=== PATIENT | female | born 1955 | race Caucasian/White ===

== ENCOUNTER 2017-02-10 06:27 | Inpatient (IN) | payer BC ==
--- NOTE | 2017-02-09 10:05 | HP ---
ADMISSION HISTORY AND PHYSICAL: DATE OF ADMISSION: 02/10/17. CHIEF COMPLAINT: Back pain. HISTORY OF PRESENT ILLNESS: This 62-year-old lady was seen in the office with signs and symptoms of chronic back pain. She had been evaluated and found to have significant lumbar degenerative disc disease at L4-5 and L5-S1 with disk space collapse and foraminal compromise. She had been treated extensively with conservative therapy and is being admitted at this time for elective surgical therapy. She has been treated with multiple rounds of physical therapy, epidural steroids injections and multiple medication and continues to have disabling pain. PAST MEDICAL HISTORY: Significant for primarily her back discomfort. PAST SURGICAL HISTORY: Previous surgeries include a hysterectomy. CURRENT MEDICATIONS: Include, 1. Paroxetine ER 20 mg daily. 2. Naproxen 375 mg p.o. daily. 3. Vivelle-Dot 0.05 mg per 24 hours twice weekly. ALLERGIES: She has no medication allergies. FAMILY HISTORY: Family history was taken and noncontributory to this illness. SOCIAL HISTORY: Reveals that the patient does not smoke and occasionally drinks alcohol. REVIEW OF SYSTEMS: A complete review of systems was taken and did not contribute to this illness. PHYSICAL EXAMINATION VITAL SIGNS: The patient was noted to have a blood pressure of 110/70 with a pulse of 64, respirations of 16. HEENT: Head was normocephalic with no scalp contusion or tenderness. Eyes revealed a full range of extraocular movements with pupils that were equal and reactive to light. NECK: Supple. LUNGS: Clear to auscultation. HEART: Revealed a regular rate and rhythm with no murmur. ABDOMEN: Soft with normal bowel sounds. No tenderness. EXTREMITIES: Revealed full range of active motion. NEUROLOGIC: Revealed her cranial nerves to be intact. Motor examination was 5/ 5 strength in all extremities. Sensory examination was intact to pinprick and light touch. Reflexes were 2+ with downgoing toes and no clonus. Straight leg raise test was positive on the right side at 45 degrees. IMPRESSION: Lumbar degenerative disk disease with chronic back pain. PLAN/RECOMMENDATIONS: She is admitted at this time for elective surgical therapy. I proposed a procedure of lumbar decompression with instrumentation at L4-5 and L5- S1 was explained in detail. The risks of surgery to include bleeding, infection, numbness, weakness, CSF leak and potential poor graft healing were all discussed. [id number]/[facility] #: [id number] [facility]
[~2017-02-10 06:27] MED LIST: Buffered Lidocaine 0.9% SYRIN* 5 ML/SYR SYRINGE INTRADERM ONE; Famotidine TAB* 20 MG PO ONE
[2017-02-10] MEDS ORDERED: ceFAZolin 2 GM PREMIX (*) 2 GM/50 ML BAG IVPB ONE ×2 (07:03→11:18)
[2017-02-10] MEDS ORDERED: Famotidine TAB* 20 MG ONE (07:03)
[2017-02-10] MEDS ORDERED: Thrombin 5,000 UNITS* 1 APPLIC KIT - topical use - TOPICAL ONE (07:21)
[2017-02-10] MEDS ORDERED: Lidocaine 1% MPF wEPI 200,000* 30 ML SDV ONE (07:21)
[2017-02-10] MEDS ORDERED: Bacitracin IV* 50,000 UNITS INJ ONE (07:21)
[2017-02-10] MEDS ORDERED: Scopolamine 1.5 mg* PATCH ONE (07:30)
[2017-02-10] MEDS ORDERED: fentaNYL* 50 MCG/ML 5 ML VIAL (250 MCG VIAL) ONE (07:50)
[2017-02-10] MEDS ORDERED: Propofol* 10 MG/ML 20 ML BTL IV PUSH ONE (07:50)
[2017-02-10] MEDS ORDERED: Lidocaine 2% PF * 5 ML VIAL ONE (07:50)
[2017-02-10] MEDS ORDERED: Dexamethasone IV* 4 MG/ML 1 ML (4 MG) ONE (07:50)
[2017-02-10] MEDS ORDERED: Rocuronium* 10 MG/ML VIAL ONE (07:54)
[2017-02-10] MEDS ORDERED: EPHEDrine (Pressors)* 50 MG/ML VIAL ONE ×2 (09:05→10:56)
[2017-02-10] MEDS ORDERED: Ketorolac INJ* 30 MG/ML 1 ML VIAL IV PRN (09:27)
[2017-02-10] MEDS ORDERED: DiMENhydriNATE IV* 50 MG/ML VIAL IV PUSH PRN (09:27)
[2017-02-10] MEDS ORDERED: Ondansetron INJ* 2 MG/ML VIAL ONE (12:43)
[2017-02-10] MEDS ORDERED: Acetaminophen TAB* 325 MG PO PRN (12:44)
--- NOTE | 2017-02-10 12:56 | RAD ---
INDICATION: Decompressive lumbar laminectomy COMPARISONS: None relevant TECHNIQUE: Fluoroscopy was provided for a surgical procedure. Total fluoroscopy time is: 4.03 FINDINGS: Intraoperative spot fluoroscopic images were obtained during lumbar laminectomy IMPRESSION: FLUOROSCOPY WAS PROVIDED FOR A SURGICAL PROCEDURE CPT II Codes: 6045F
[2017-02-10] MEDS ORDERED: Morphine PCA ADULT* 5 MG/ML 30 ML PCA SCH (13:00)
--- NOTE | 2017-02-10 13:04 | RAD ---
CPT II Codes: 6045F INDICATION: Chronic low back pain TECHNIQUE: Intraoperative fluoroscopy was provided during decompressive lumbar laminectomy with transpedicular fixation. FINDINGS: 2 spot films depict bilateral transpedicular fixation screws at L4, L5 and S1 with posterior fixation rods and intervertebral disc spacers.. Fluoroscopy time: 2.1 seconds IMPRESSION: As above.
[2017-02-10] MEDS ORDERED: Ondansetron INJ* 2 MG/ML VIAL IV PRN (13:09)
[2017-02-10] MEDS: Morphine INJ* 2 MG/ML 1 ML CARPUJECT IV PRN ×5 (13:20→13:51)
[2017-02-10] MEDS ORDERED: fentaNYL* 50 MCG/ML 2 ML VIAL (100 MCG VIAL) ONE ×2 (13:20→13:32)
[2017-02-10] MEDS ORDERED: Morphine INJ* 10 MG/ML 1 ML CARPUJECT ONE ×2 (13:20→13:43)
[2017-02-10] MEDS: fentaNYL* 50 MCG/ML 2 ML VIAL (100 MCG VIAL) IV PRN ×5 (13:22→13:49)
[2017-02-10] MEDS ORDERED: Morphine PCA ADULT* 5 MG/ML 30 ML ONE (13:28)
[2017-02-10] MEDS ORDERED: Ketorolac INJ* 30 MG/ML 1 ML VIAL ONE (13:32)
[2017-02-10] MEDS ORDERED: Midazolam* 1 MG/ML 2 ML VIAL (2 MG) ONE (13:43)
[2017-02-10] MEDS ORDERED: Naloxone* 0.4 MG/ML 1 ML VIAL ONE (14:10)
[2017-02-10] MEDS ORDERED: Acetaminophen IV 1GM/100ML * 100 ML ONE (14:45)
[2017-02-10] MEDS ORDERED: Cyclobenzaprine TAB* 10 MG PO PRN (15:42)
[2017-02-10 17:02] LABS: Mean Platelet Volume 8 um3 (7.4-10.4); Red Cell Distribution Width 12 % (10.5-15)
[2017-02-10 17:04] LABS: Hematocrit 31 % (35-47); Hemoglobin 10.7 g/dl (12.0-16.0); Mean Corpuscular HGB Conc 35 g/dl (31-36); Mean Corpuscular Hemoglobin 33 pg (27-31); Mean Corpuscular Volume 96 fL (80-97); Red Blood Count 3.22 10^6/ul (4.0-5.4); White Blood Count 8.7 10^3/ul (3.5-10.8)
[2017-02-10 17:09] LABS: Comments Flag Yes
[2017-02-10] MEDS: HYDROcodone/ACETAMIN 5-325 MG* 1 TAB PO PRN (21:01)
[2017-02-10] MEDS ORDERED: NS 0.9% 250 ML* 250 ML IV ONE (21:06)
[2017-02-10] MEDS: Docusate CAP* 100 MG PO SCH (21:52)
[2017-02-11] MEDS: HYDROcodone/ACETAMIN 5-325 MG* 1 TAB PO PRN ×6 (02:04→22:34)
[2017-02-11 05:18] LABS: Hematocrit 25 % (35-47); Hemoglobin 8.7 g/dl (12.0-16.0); Mean Corpuscular HGB Conc 35 g/dl (31-36); Mean Corpuscular Hemoglobin 33 pg (27-31); Mean Corpuscular Volume 96 fL (80-97); Mean Platelet Volume 8 um3 (7.4-10.4); Red Blood Count 2.63 10^6/ul (4.0-5.4); Red Cell Distribution Width 12 % (10.5-15)
--- NOTE | 2017-02-11 07:55 | PN ---
Progress Note - Progress Note Date of Service: 02/11/17 SOAP: Subjective: [S/p decompressive lumbar laminectomy and instrumented fusion with placement of interbody spacers L4-5 and L5-S1. POD #1 She is feeling well this morning and has no complaints. Low back pain managed well with [place]. Pt has not ambulated post-operatively. ] Objective: [Vital Signs: Temp Pulse Resp BP Pulse Ox 97.4 F 102 11 94/50 98 02/11/17 03:23 02/11/17 03:23 02/11/17 05:58 02/11/17 03:23 02/11/17 05:52 General: Alert and laying comfortably in bed. Neuro: Motor normal Incision: Dressing intact and dry. No swelling. Rom drain in place and functioning well. Rom drain output 02/10/17 02/10/17 02/10/17 15:16 16:30 18:30 Output, MISTI #1 100 75 50 02/10/17 02/10/17 02/11/17 19:11 22:03 00:32 Output, MISTI #1 100 70 50 02/11/17 02/11/17 03:50 05:54 Output, MISTI #1 50 50 Lab Results 02/10/17 02/11/17 16:51 04:42 WBC 8.7 7.0 RBC 3.22 L 2.63 L Hgb 10.7 L 8.7 L Hct 31 L 25 L MCV 96 96 MCH 33 H 33 H MCHC 35 35 RDW 12 12 Plt Count 138 L 122 L MPV 8 8 Neut % (Auto) 93.5 H 73.3 Lymph % (Auto) 4.1 L 17.5 L [place] % (Auto) 2.3 9.0 Eos % (Auto) 0 0 Baso % (Auto) 0.1 0.2 Absolute Neuts (auto) 8.1 H 5.1 Absolute Lymphs (auto) 0.4 L 1.2 Absolute Monos (auto) 0.2 0.6 Absolute Eos (auto) 0 0 Absolute Basos (auto) 0 0 Absolute Nucleated RBC 0 0 Nucleated RBC % 0 0 ] Assessment: [Satisfactory post-op overnight. Pain well controlled with PO meds. Wound drain continues to collect large volume fluid, will remain in place. ] Plan: [1. Discontinue capnography 2. Hct 25, Hgb 8.7- repeat CBC 02/12/17 3. Saline lock fluids 4. Continue pain management 5. Rom drain remain in place 6. Out of bed as tolerated ]
[2017-02-11] MEDS: Docusate CAP* 100 MG PO SCH ×2 (10:09→21:13)
[2017-02-11] MEDS: PARoxetine HCL TAB* 20 MG PO SCH (10:09)
[2017-02-12] MEDS: HYDROcodone/ACETAMIN 5-325 MG* 1 TAB PO PRN ×6 (02:38→21:36)
[2017-02-12 07:15] LABS: Hematocrit 27 % (35-47); Hemoglobin 9.1 g/dl (12.0-16.0); Mean Corpuscular HGB Conc 34 g/dl (31-36); Mean Corpuscular Hemoglobin 33 pg (27-31); Mean Corpuscular Volume 96 fL (80-97); Mean Platelet Volume 8 um3 (7.4-10.4); Red Blood Count 2.79 10^6/ul (4.0-5.4); Red Cell Distribution Width 12 % (10.5-15); White Blood Count 7.3 10^3/ul (3.5-10.8)
--- NOTE | 2017-02-12 08:00 | PN ---
Progress Note - Progress Note Date of Service: 02/12/17 SOAP: Subjective: []POD # 2 Doing better Did got orthostatic last night Drainage slowing C/O incisional pain Pre op leg pain relieved Objective: []Hct 27 Drainage decreased Assessment: []Slowly improving Plan: []Restart NS
[2017-02-12] MEDS: NS 0.9% 1000 ML* 1,000 ML IV SCH ×2 (08:25→16:35)
[2017-02-12] MEDS: PARoxetine HCL TAB* 20 MG PO SCH (08:54)
[2017-02-12] MEDS: Docusate CAP* 100 MG PO SCH ×2 (08:54→21:36)
[2017-02-12] MEDS ORDERED: Magnesium Hydroxide LIQ* 30 ML UDC PO ONE (11:46)
[2017-02-12] MEDS ORDERED: Magnesium Hydroxide LIQ* 30 ML UDC ONE (12:02)
[2017-02-12] MEDS: Magnesium Hydroxide LIQ* 30 ML UDC PO PRN (12:05)
[2017-02-13] MEDS: NS 0.9% 1000 ML* 1,000 ML IV SCH (00:04)
[2017-02-13] MEDS: HYDROcodone/ACETAMIN 5-325 MG* 1 TAB PO PRN ×2 (03:50→07:22)
[2017-02-13 06:04] LABS: Hematocrit 25 % (35-47); Hemoglobin 8.7 g/dl (12.0-16.0); Mean Corpuscular HGB Conc 34 g/dl (31-36); Mean Corpuscular Hemoglobin 33 pg (27-31); Mean Corpuscular Volume 96 fL (80-97); Mean Platelet Volume 8 um3 (7.4-10.4); Red Blood Count 2.64 10^6/ul (4.0-5.4); Red Cell Distribution Width 12 % (10.5-15); White Blood Count 5.4 10^3/ul (3.5-10.8)
[2017-02-13] MEDS: PARoxetine HCL TAB* 20 MG PO SCH (07:22)
[2017-02-13] MEDS: Docusate CAP* 100 MG PO SCH (07:22)
[2017-02-13] MEDS: Magnesium Hydroxide LIQ* 30 ML UDC PO PRN (07:32)
--- NOTE | 2017-02-13 07:42 | PN ---
Progress Note - Progress Note Date of Service: 02/13/17 SOAP: Subjective: []POD # 3 Feels better No more pre syncopal issues Objective: []Drainage slowed Neuro intact Assessment: []Satis post op course Plan: []D/C today D/C instructions given
[2017-02-13 08:25] VITALS: BP 117/67
--- NOTE | 2017-02-13 11:16 | OP ---
OPERATIVE REPORT: DATE OF OPERATION: 02/10/17 DATE OF : 59 PRIMARY SURGEON: Armando Boyd MD CERTIFIED EMERGENCY VEHICLE TECHNICIAN: YADIEL Ronquillo. ANESTHESIA: General. PRE-OP DIAGNOSIS: Lumbar spinal stenosis at L4-5, lumbar degenerative disk disease at L5-S1 with stenosis. POST-OP DIAGNOSIS: Lumbar spinal stenosis at L4-5, lumbar degenerative disk disease at L5-S1 with stenosis. OPERATIVE PROCEDURE: Decompressive lumbar laminectomy at L4-5, L5-S1, non- segmental posterior instrumentation L4-5, L5-S1, lumbar interbody fusion L4-5, L5- S1, posterior lateral lumbar fusion L4-5, L5-S1, harvesting of autograft for fusion, stereotactic navigation for pedicle screw placement. DESCRIPTION OF PROCEDURE: After satisfactory general anesthesia was obtained, the patient was place don the operating table in a prone position with the chest supported on bolsters. The lumbar region was then clipped, prepped and draped in a sterile manner for lumbar laminectomy and a skin incision outlined from L3 to the sacrum. This incision was infiltrated with 1% Xylocaine with epinephrine, after which it was turned down sharply to the level of the lumbar fascia. The dissection was then carried down until the fascia was divided along the spinous processes from L3 to the sacrum, and the paraspinal musculature stripped away from these posterior elements using the periosteal elevator and monopolar cautery. This dissection was carried out laterally until the transverse processes of L4 and L5, as well as the sacral ala could be identified. At this point of the procedure, the [facility] O- arm intraoperative CT scanner was brought into the field and a CT scan done after a stereotactic reference arc had been attached to the right iliac crest. Utilizing the O-arm images a plan was developed using Stealth navigation to place pedicle screws at L4-L5 in the sacrum. The screws were initially placed on the left side at L4-L5 and the sacrum. The screws on the left at L4 and L5 were 6/5 in diameter, 45 mm long screws and at S1 there was a 6/5, 30 mm screw. In a similar manner, screws were placed on the right side without difficulty. Following screw placement, another spin was obtained utilizing the intraoperative CT scanner and the screw placement was noted to be satisfactory. Attention was then directed to the decompression and the spinous processes of L4 and L5 were removed to be used as autograft later in the procedure. A decompression was then carried out initially at L4-5 where the inferior aspect of the L4 lamina and medial aspect of the facet complex was thinned out with a Midas John drill and a decompression carried out. There was noted to be marked neuroforaminal compromise, especially on the right side at L4 -5. The decompression was carried laterally and inferiorly until both L5 nerve roots were noted to be free in their course. In a similar manner, decompression was carried out at L5-S1 until both S1 nerve roots were noted to be free. Attention was then redirected to the L4-5 level where utilizing the [employer] Capstone interbody spacer and 9 mm spacer was placed initially on the left side at L4-5, followed by the right side at L4-5. At the L5-S1 level, Capstone grafts were placed with an 8 mm graft initially on the right side followed by an 8 mm graft on the left side. These grafts were placed also utilizing stereotactic navigation. Following graft placement, intraoperative fluoroscopy was obtained. An AP and lateral x-ray showing good spacer and screw location. The screws were then connected with rods, after which a bone log which had been prepared was placed laterally over the transvers processes of L4-5 and the sacral ala. A drain was then placed in the epidural space and tunnelled out towards the left side. The fascia was then reapproximated with 0 Vicryl sutures and the subcutaneous tissues closed with 3-0 Vicryl suture and the skin closed with skin clips. The estimated blood loss was 400 cc. The final sponge, padding, and needle counts were correct. The patient was taken to the recovery room, extubated and in stable condition. [id number]/[facility] #: [id number] [facility]
--- NOTE | 2017-02-14 00:44 | DS ---
DISCHARGE SUMMARY: DATE OF ADMISSION: 02/10/17 DATE OF DISCHARGE: 02/13/17 ATTENDING PHYSICIAN: Dr. Boyd * (DICTATED BY YADIEL WIGGINS) DISCHARGE DIAGNOSES: 1. Lumbar degenerative disk disease. 2. Lumbar stenosis. SPECIAL PROCEDURES: Decompressive lumbar laminectomy with instrumented fusion and placement of interbody pacer at L4-L5 and L5-S1. HOSPITAL COURSE: This 62-year-old female was seen in office with the complaints of low back pain for the past 10 years with recent development of right hips, buttock, and leg pain. Pain is worse with sitting. MRI was confirmed with lumbar degenerative disk disease and lumbar stenosis specifically at L4-5 on the right. She has failed to improve with considerable amount of time of conservative treatment and therefore, a surgical intervention was discussed with the patient. She wished to proceed with elective surgical treatment. On the day of admission, she was taken to the surgery where under general anesthesia, a decompressive lumbar laminectomy with instrumented fusion and placement of interbody spacers at L4-5 and L5-S1 operation was carried out. Postoperatively, she experienced significant amount of pain in the postanesthesia care unit. She was given a morphine for pain management, which resulted in respiratory distress. She exhibited stridor and difficulty breathing. A nasal airway was then secured and she was given 0.04 mg of naloxone. This treatment produced good result and the patient became more alert and aware. Much of the IV pain medication was therefore discontinued and she was maintained with oral pain medications only. After 4 to 5 hours in the postoperative care unit, she was transferred to the short-stay surgical floor where she maintained adequate oxygenation and had no further episodes of respiratory distress overnight. On the first postoperative day, she was feeling well on the back. Pain had improved. The right lower extremity preoperative symptoms were improved. She remained admitted due to the wound drain clogging a large amount of fluid. She was also encouraged to get out of bed and ambulate as tolerable. On the first postoperative day, the Peacock catheter was also discontinued and the patient was able to void without difficulty. She did complain of constipation and was therefore prescribed Colace and on second postoperative day, she has been feeling well. She continued to feel significant amount of drainage in the wound drain. Overnight , she had experienced an episode of lightheadedness and dizziness, which caused her to lower herself to the floor in the bathroom. She does not sustain any injury. She did not fall. She was able to get up off the floor with assistance and was assisted back to bed. On second postoperative day, we again increased the amount of IV fluids that the patient was receiving currently for blood loss. She remained admitted again for a third night. On the third postoperative day, she was feeling well and she was ambulated several times around the nursing unit without difficulty. She complained of low back pain and occasional soreness, although the right lower extremity pain had continued to improve. Pain is well controlled with oral pain medications and she had not had any additional episodes of lightheadedness or dizziness and no falls. She was eating, drinking, and voiding without difficulty. On the third postoperative day, the wound draining was discontinued and she was discharged home to the care of her . DISCHARGE MEDICATIONS: [place] 5/325 mg 1 to 2 tabs by mouth every 4 to 6 hours as needed for pain. FOLLOWUP: She will be seen in office on February 25 for followup and staple removal. DISCHARGE INSTRUCTIONS: Activity level and wound care were discussed with the patient and the information was provided. YADIEL WIGGINS [id number]/[facility] #: [id number] [place]
== END 2017-02-13 10:00 | disposition home or self-care (01) | DRG 304 ==
LOC: AA 06:27 → SSU 18:35
PROVIDERS: ADMIT Neurological Surgery; ATTEND Neurological Surgery
PROC: 0SG0071 Fusion of Lumbar Vertebral Joint with Autologous Tissue Substitute, Posterior Approach, Posterior Column, Open Approach (ICD-10-PCS; 2017-02-10)
PROC: 0SG3071 Fusion of Lumbosacral Joint with Autologous Tissue Substitute, Posterior Approach, Posterior Column, Open Approach (ICD-10-PCS; 2017-02-10)
PROC: 8E0WXBZ Computer Assisted Procedure of Trunk Region (ICD-10-PCS; 2017-02-10)
PROC: 01NB0ZZ Release Lumbar Nerve, Open Approach (ICD-10-PCS; principal; 2017-02-10 07:45)
DX: M51.36 Other intervertebral disc degeneration, lumbar region (principal); G89.29 Other chronic pain; M51.37 Other intervertebral disc degeneration, lumbosacral region; M48.061 Spinal stenosis, lumbar region without neurogenic claudication; Z90.710 Acquired absence of both cervix and uterus; Z72.89 Other problems related to lifestyle; M48.07 Spinal stenosis, lumbosacral region; M54.9 Dorsalgia, unspecified; I95.1 Orthostatic hypotension; R06.03 Acute respiratory distress; T40.2X5A Adverse effect of other opioids, initial encounter; Y92.9 Unspecified place or not applicable; K59.00 Constipation, unspecified; R42 Dizziness and giddiness
CPT/HCPCS: 36415; 76000; 85025; 94760; A9270-GY; C1713; C1776; J0690; J1100; J1885; J2001; J2250; J2270; J2310; J2405; J2704; J3010

== ENCOUNTER 2021-05-24 13:47 | Observation (INO) ==
[2021-05-24 15:06] LABS: ABS Lymphocytes 1.3 10^3/ul (1.0-4.8); ABS Monocytes 1.2 10^3/ul (0-0.8); ABS Neutrophils 10.6 10^3/ul (1.5-7.7); Eosinophil % 0.2 %; Hematocrit 40 % (35-47); Hemoglobin 13.9 g/dL (12.0-16.0); Mean Corpuscular HGB Conc 35 g/dL (31-36); Mean Corpuscular Hemoglobin 33 pg (27-31); Mean Corpuscular Volume 96 fL (80-97); Mean Platelet Volume 8.2 fL (7.4-10.4); Platelet Count 192 10^3/uL (150-450); Red Blood Count 4.18 10^6 /uL (3.70-4.87); Red Cell Distribution Width 12 % (10-15); White Blood Count 13.2 10^3/uL (3.5-10.8)
[2021-05-24 16:00] LABS: Albumin 4.5 g/dL (3.2-5.2); Albumin/Globulin Ratio 1.6 (1-3); C Reactive Protein 51.93 mg/L (<8.01); Calcium 9.5 mg/dL (8.6-10.3); Globulin 2.9 g/dL (2-4); Potassium 3.5 mmol/L (3.5-5.0); Total Protein 7.4 g/dL (6.4-8.9); eGFR CKD-EPI 75.4 (>60)
[2021-05-24] MEDS ORDERED: Iohexol 300 (CONTRAST) 10 ML SDV IV ONE (17:18)
[2021-05-24] MEDS ORDERED: Morphine 4 MG/ML VIAL (1 ml) IV ONE (17:39)
[2021-05-24] MEDS ORDERED: Ondansetron 4 mg VIAL 2 MG/ML 2 ml VIAL IV ONE (17:39)
[2021-05-24] MEDS ORDERED: Piperacillin/Tazobac ADVAN 3.375 GM in NS 0.9% 100 ml BAG 100 ML IV ONE (21:08)
[2021-05-24] MEDS ORDERED: Ondansetron 4 mg VIAL 2 MG/ML 2 ml VIAL IV PRN (21:44)
[2021-05-24] MEDS ORDERED: Acetaminophen IV 1 GM/100ML 100 ML IV PRN (21:46)
[2021-05-24] MEDS ORDERED: HYDROmorphone 0.5 MG/0.5 ML SYRINGE IV SLOW PU PRN (21:47)
[2021-05-24 22:43] LABS: Urine Appearance Clear; Urine Bilirubin Negative (Negative); Urine Blood 1+ (Negative); Urine Color Yellow; Urine Glucose Negative (Negative); Urine Ketones Trace (Negative); Urine Nitrite Negative (Negative); Urine Protein Negative (Negative); Urine Specific Gravity 1.004 (1.002-1.030); Urine Urobilinogen Negative (Negative)
[2021-05-24 22:47] LABS: Urine Bacteria Absent (Absent); Urine Red Blood Cell Trace(0-2/hpf) (Absent); Urine White Blood Cell Trace(0-5/hpf) (Absent)
[2021-05-24] MEDS: D5W 1/2 NS KCl 20 meq 1000 ml 1,000 ML IV SCH (22:58)
[2021-05-25] MEDS ORDERED: Piperacillin/Tazobactam VIAL 3.375 GM in NS 0.9% 100 ml BAG 100 ML IVPB SCH (01:30)
[2021-05-25] MEDS ORDERED: ZOSYN 3.375 GM Q8H per EXTENDED INFUSION IV SCH (01:30)
[2021-05-25 05:38] LABS: ABS Lymphocytes 0.8 10^3/ul (1.0-4.8); ABS Monocytes 1.3 10^3/ul (0-0.8); ABS Neutrophils 10.5 10^3/ul (1.5-7.7); Eosinophil % 0.3 %; Hematocrit 37 % (35-47); Hemoglobin 12.8 g/dL (12.0-16.0); Lymphocyte % 6.4 %; Mean Corpuscular HGB Conc 34 g/dL (31-36); Mean Corpuscular Hemoglobin 33 pg (27-31); Mean Corpuscular Volume 96 fL (80-97); Platelet Count 157 10^3/uL (150-450); Red Cell Distribution Width 12 % (10-15); White Blood Count 12.7 10^3/uL (3.5-10.8)
[2021-05-25 06:01] LABS: Calcium 8.6 mg/dL (8.6-10.3); Potassium 3.9 mmol/L (3.5-5.0); eGFR CKD-EPI 58.7 (>60)
[2021-05-25] MEDS: D5W 1/2 NS KCl 20 meq 1000 ml 1,000 ML IV SCH (06:20)
[2021-05-25] MEDS ORDERED: Ondansetron 4 mg VIAL 2 MG/ML 2 ml VIAL ONE ×2 (07:53→09:49)
[2021-05-25] MEDS ORDERED: Succinylcholine 200 mg VIAL 20 mg/ml 10 ml VIAL (200 mg) ONE (07:53)
[2021-05-25] MEDS ORDERED: Propofol 10 MG/ML 20 ML BTL ONE (07:53)
[2021-05-25] MEDS ORDERED: fentaNYL 100 mcg/2 ml 50 MCG/ML VIAL ONE (07:54)
[2021-05-25] MEDS ORDERED: Rocuronium 50 mg VIAL 10 mg/ml 5 ml VIAL (50 mg) ONE (07:54)
[2021-05-25] MEDS ORDERED: Midazolam 2 mg/2 ml VIAL 1 mg/ml 2 ml VIAL (2 mg) ONE (07:54)
[2021-05-25] MEDS ORDERED: EPHEDrine (Pressors) 50 MG/ML VIAL ONE (07:58)
[2021-05-25] MEDS ORDERED: Lidocaine 1% w EPI 1:100,000 MDV 20 ML VIAL ONE (08:05)
[2021-05-25] MEDS ORDERED: Bupivacaine 0.5% SDV PF 30ML VIAL ONE (08:06)
[2021-05-25] MEDS ORDERED: Famotidine IV 10 MG/ML 2 ml VIAL (20 mg) ONE (08:36)
[2021-05-25] MEDS ORDERED: Phenylephrine IV 10 MG/ML 1 ml VIAL ONE (09:02)
[2021-05-25] MEDS ORDERED: ceFOXitin 2 GM IVPREMIX 2 GM/50 ML BAG ONE (09:07)
[2021-05-25] MEDS ORDERED: Dexamethasone IV 4 MG/ML VIAL 1 ml VIAL ONE (09:49)
[2021-05-25] MEDS ORDERED: Acetaminophen IV 1 GM/100ML 100 ML IV ONE ×2 (09:57→10:16)
[2021-05-25] MEDS ORDERED: oxyCODONE/Acetamin 5/325 mg TAB PO PRN (09:57)
[2021-05-25] MEDS ORDERED: Naloxone 0.4 mg VIAL 0.4 mg/ml 1 ml VIAL IV PRN (09:57)
[2021-05-25] MEDS ORDERED: fentaNYL 100 mcg/2 ml 50 MCG/ML VIAL IV PRN (09:57)
[2021-05-25] MEDS ORDERED: oxyCODONE/Acetamin 5/325 mg TAB ONE (10:16)
[2021-05-25 10:35] VITALS: BP 101/56
== END 2021-05-25 12:00 | disposition home or self-care (01) ==
LOC: ED 13:47 → EDHOLD 13:47 → SSU 05-25 00:58
PROVIDERS: ADMIT Surgery; ATTEND Surgery